=== PATIENT | female | born 1960 ===

== ENCOUNTER 2017-12-05 07:43 | Outpatient (CLI) | payer OTHER ==
[~2017-12-05] VITALS: Ht 162.6 cm; Wt 102.1 kg
== END 2017-12-05 08:00 | disposition home or self-care (01) ==
LOC: OFIC 805 07:43
DX: J30.89 Other allergic rhinitis (principal); R09.81 Nasal congestion

== ENCOUNTER 2024-12-03 05:10 | Day surgery (SDC) | payer OTHER ==
[2024-11-26 10:46] VITALS: BP 139/80
[2024-11-26 11:25] LABS: HEMATOCRIT 39.9 % (36.0-45.00); HEMOGLOBIN 12.8 g/dL (12.0-15.00); MEAN CELL VOLUME 92.1 fL (80.00-100.00); MEAN CORPUSCULAR HEMOGLOBIN 29.5 pg (27.00-32.0); MEAN CORPUSCULAR HGB CONC 32.1 g/dl (32.0-36.0); PLATELET COUNT 296 K/uL (150-450); RED BLOOD COUNT 4.33 M/uL (4.00-6.00); RED CELL DISTRIBUTION WIDTH 14.6 % (11.5-14.5)
[2024-11-26 11:31] LABS: PH,URINE 6.5 (5.0-8.0); URINE APPEARANCE Cloudy; URINE BILIRRUBIN Negative (NEGATIVE); URINE BLOOD NHT; URINE COLOR Yellow; URINE GLUCOSE Negative (NEGATIVE); URINE KETONE Negative (NEGATIVE); URINE LEUKOCYTE Negative; URINE NITRATE Negative; URINE PROTEIN Negative (NEGATIVE)
[2024-11-26 11:34] LABS: URINE BACTERIA 193.3 uL (0.0-1933); URINE EPITHELIAL CELLS 95.7 uL (0.0-38.8); URINE RBC 49.3 uL (0.0-20.8); URINE WBC 5.8 uL (0.0-23.2)
[2024-11-26 11:46] LABS: PARTIAL THROMBOPLASTIN TIME 36.7 SECONDS (22.0-34.0); PROTHROMBIN TIME 10.9 SECONDS (9.0-11.5)
[2024-11-26 11:47] LABS: URINE CAST 0.29 uL (0.0-1.40)
[2024-11-26 12:24] LABS: ALBUMIN 3.5 gm/dL (3.4-5.0); BILIRUBIN TOTAL 0.54 mg/dL (0.3-1.2); CREATININE SERUM 0.86 mg/dL (0.55-1.02); GFR 66.02; GLOBULINA 3.8 G/DL (2.4-3.5); POTASSIUM 4.6 mEq/L (3.5-5.1); TOTAL PROTEIN 7.3 gm/dL (6.4-8.2)
[~2024-12-03] VITALS: Ht 152.4 cm; Wt 108.9 kg
[~2024-12-03 05:10] MED LIST: ALLOPURINOL300 MG PO; AVALIDE 300-121 EACH PO; CYMBALTA20 MG PO; LYRICA150 MG PO; PROTONIX40 MG PO; ROPINIROLE HCL6 MG PO; ROSUVASTATIN CAL5 MG PO; TENORMIN50 M1 PO; ZANAFLEX4 M1 PO
[2024-12-03] MEDS ORDERED: BUPIVACAINE HCL/MPF 0.5% 30ML VIAL ONE (07:34)
[2024-12-03] MEDS ORDERED: CEFAZOLIN SODIUM 1,000 MG VIAL ONE (07:35)
== END 2024-12-03 11:00 | disposition home or self-care (01) ==
LOC: CIR.AMB 05:10
PROVIDERS: ATTEND Orthopaedic Surgery Hand Surgery
DX: M65.331 Trigger finger, right middle finger (principal); G56.01 Carpal tunnel syndrome, right upper limb; I10 Essential (primary) hypertension

== ENCOUNTER 2024-12-21 13:19 | Emergency (ER) | payer OTHER ==
[~2024-12-21] VITALS: Ht 162.6 cm; Wt 108.9 kg
[2024-12-21] MEDS ORDERED: ORPHENADRINE CITRATE 30 MG/ML AMPUL IM STA (14:41)
[2024-12-21] MEDS ORDERED: ORPHENADRINE CITRATE 30 MG/ML AMPUL ONE (14:48)
== END 2024-12-21 16:21 | disposition home or self-care (01) ==
LOC: ER 13:19
DX: G56.01 Carpal tunnel syndrome, right upper limb (principal); I12.9 Hypertensive chronic kidney disease with stage 1 through stage 4 chronic kidney disease, or unspecified chronic kidney disease; N18.9 Chronic kidney disease, unspecified
CPT/HCPCS: 96372; 99282; J2360